=== PATIENT | male | born 1945 | race Hispanic/Latino ===

== ENCOUNTER 2024-04-21 10:12 | Emergency (ER) | payer MEDICARE ==
[~2024-04-21] VITALS: Ht 170.2 cm; Wt 92.2 kg
[2024-04-21] MEDS ORDERED: ALLOPURINOL100 MG PO (10:37)
[2024-04-21] MEDS ORDERED: ATORVASTATIN CA20 MG PO (10:37)
[2024-04-21] MEDS ORDERED: LISINOPRIL10 MG PO (10:37)
[2024-04-21] MEDS ORDERED: WARFARIN SODIUM4 MG (10:37)
[2024-04-21] MEDS ORDERED: CEPHALEXIN500 MG PO (10:41)
[2024-04-21 10:51] VITALS: PULSE 76; RESP 16; TEMP 98.7; O2SAT 96
== END 2024-04-21 10:51 | disposition home or self-care (01) ==
LOC: FSED 10:19
DX: R30.0 Dysuria (principal); N30.91 Cystitis, unspecified with hematuria; I10 Essential (primary) hypertension; E78.5 Hyperlipidemia, unspecified; M10.9 Gout, unspecified; Z86.718 Personal history of other venous thrombosis and embolism; Z96.651 Presence of right artificial knee joint
CPT/HCPCS: 81003; 99283